=== PATIENT | female | born 2000 | race Caucasian/White ===

== ENCOUNTER 2025-03-20 15:49 | Emergency (ER) | payer OTHER ==
[~2025-03-20] VITALS: Ht 165.1 cm; Wt 60.8 kg
[2025-03-20] MEDS: diphenhydrAMINE HCL 50 MG/ML VIAL IV ONE ×2 (16:25→18:42)
[2025-03-20] MEDS: IV NS 0.9% 1,000 ML BAG IV ONE ×3 (16:25→18:14)
[2025-03-20] MEDS: dexaMETHasone SOD PHOSPHATE 10 MG/ML VIAL IV ONE (16:27)
[2025-03-20] MEDS: FAMOTIDINE/PF INJ 20 MG/2 ML VIAL IV ONE (16:30)
[2025-03-20] MEDS ORDERED: dexaMETHasone SOD PHOSPHATE 1 ML ONE (16:34)
[2025-03-20] MEDS ORDERED: FAMOTIDINE/PF INJ 20 MG/2 ML VIAL IV ONE (16:35)
[2025-03-20] MEDS ORDERED: diphenhydrAMINE HCL 50 MG/ML VIAL ONE ×2 (16:35→18:08)
[2025-03-20] MEDS ORDERED: DICYCLOMINE HCL 10 MG CAPSULE PO ONE (18:16)
[2025-03-20] MEDS: DICYCLOMINE HCL 10 MG CAPSULE PO ONE (18:19)
[2025-03-20] MEDS ORDERED: DIPH25TA62 PO (20:08)
[2025-03-20] MEDS ORDERED: PRED20TA PO (20:08)
[2025-03-20] MEDS ORDERED: EPIN0.1519 IM (20:08)
[2025-03-20] MEDS ORDERED: FAMO20TA80 PO (20:08)
[2025-03-20 20:35] VITALS: BP 108/74; TEMP 97.9; O2SAT 99
== END 2025-03-20 20:24 | disposition home or self-care (01) ==
LOC: ER 15:49
DX: T78.2XXA Anaphylactic shock, unspecified, initial encounter (principal); J45.909 Unspecified asthma, uncomplicated; X58.XXXA Exposure to other specified factors, initial encounter
CPT/HCPCS: 99285; 96374; 96361; 96375; 96376; J1100; J1200 ×2; J1308